=== PATIENT | male | born 1995 | race African-American/Black ===

== ENCOUNTER 2017-01-10 20:36 | Emergency (ER) | payer SELFPAY ==
[~2017-01-10] VITALS: Ht 182.9 cm; Wt 74.8 kg
[2017-01-10 20:44] VITALS: BP 147/75
--- NOTE | 2017-01-10 21:01 | PHYS DOC ---
Past Medical History Past Medical History: No Pertinent History Past Surgical History: No Surgical History Alcohol Use: None Drug Use: None Adult General Chief Complaint Chief Complaint: HAND PROBLEM HPI HPI Patient is a 21 year old male who presents with pain on the right hand that began today after he fell. Patient denies any loss of consciousness when he fell. Review of Systems Review of Systems Constitutional: Denies fever or chills [] Musculoskeletal: Right hand pain Integument: Denies rash or skin lesions [] Neurologic: Denies headache, focal weakness or sensory changes [] All other systems were reviewed and found to be within normal limits, except as documented in this note. Current Medications Current Medications Current Medications Medications (Trade) Dose Ordered Sig/Sylvie Start Time Stop Time Status Last Admin Dose Admin Acetaminophen/ Hydrocodone Bitart (Lortab 5/325) 2 tab 1X ONCE 01/10/17 21:30 01/10/17 21:31 Allergies Allergies Allergies Coded Allergies Type Severity Reaction Last Updated Verified No Known Drug Allergies 12/22/14 No Physical Exam Physical Exam Constitutional: Well developed, well nourished, no acute distress, non-toxic appearance. [] Skin: Warm, dry, no erythema, no rash. [] Back: No tenderness, no CVA tenderness. [] Extremities: Right hand with obvious deformity on the proximal ring finger metacarpal. Swelling noted on the proximal right ring finger metacarpal. Limited range of motion to the right ring finger and pinky finger due to pain. + 2 right radial pulse. Adequate radial medial and ulnar sensation to the right hand. Neurologic: Alert and oriented X 3, normal motor function, normal sensory function, no focal deficits noted. [] Psychologic: Affect normal, judgement normal, mood normal. [] Current Patient Data Vital Signs Vital Signs Date Time Temp Pulse Resp B/P (MAP) Pulse Ox O2 Delivery O2 Flow Rate FiO2 01/10/17 20:44 97.8 96 18 147/75 (99) 99 Room Air 97.8 EKG EKG [] Radiology/Procedures Radiology/Procedures [] Course & Med Decision Making Course & Med Decision Making Pertinent Labs and Imaging studies reviewed. (See chart for details) Patient is in the ED with right hand pain after falling. Right hand x-rays interpreted by Dr. Nolan were noted for right fourth proximal metacarpal fracture. Patient was placed in ulnar gutter splint by the technical data analyst, neurovascular exam done by me is normal, cap refill less than 2 seconds. Ice elevation encouraged. Braided orthopedic doctor instructed to call the office tomorrow and set up a follow-up appointment. Toni Disclaimer Dragon Disclaimer This electronic medical record was generated, in whole or in part, using a voice recognition dictation system. Departure Departure Impression: Primary Impression: Fracture, metacarpal Additional Impression: Fall Disposition: HOME, SELF-CARE Condition: STABLE Referrals: NO PCP (PCP) ESEQUIEL MOSER MD call his office tomorrow and set up a follow up appointment Patient Instructions: Metacarpal Fracture-SportsMed Additional Instructions: You were seen with right hand fracture. We provided you an orthopedic doctor. Contact his office tomorrow and set up a follow-up appointment. Ice and elevate the affected extremities. Do not drive or operate machinery on the pain medications. Scripts Hydrocodone/Apap 5-325 (NORCO 5-325 TABLET) 1 Each Tablet 1-2 TAB PO Q4-6HRS Y for PAIN, #20 TAB Prov: PRANAY PATRICK APRN 01/10/17 Problem Qualifiers Primary Impression: Fracture, metacarpal Encounter type: initial encounter Metacarpal bone: fourth Fracture type: closed Metacarpal location: base Fracture alignment: displaced Laterality: right Qualified Codes: S62.314A - Displaced fracture of base of fourth metacarpal bone, right hand, initial encounter for closed fracture Additional Impression: Fall Encounter type: initial encounter Qualified Codes: W19.XXXA - Unspecified fall, initial encounter PRANAY PATRICK APRN Jan 10, 2017 21:01
[2017-01-10] MEDS ORDERED: HYDR-971 PO (21:12)
[2017-01-10] MEDS ORDERED: HYDROcodone/APAP 5/325MG 1 TAB TABLET PO ONE (21:30)
--- NOTE | 2017-01-11 08:17 | RAD ---
Right hand, 3 views, 01/10/2017: History: Injury There is a fracture of the proximal shaft of the fourth metacarpal with mild dorsal displacement of the proximal end of the distal fragment. The fifth CMC joint is somewhat poorly defined, however, there is a suggestion of slight subluxation and bony fragmentation at that level. There is moderate overlying soft tissue swelling. IMPRESSION: 1. Mildly displaced fracture of the proximal fourth metacarpal. 2. Probable fracture/subluxation at the fifth CMC joint.
== END 2017-01-10 21:24 | disposition home or self-care (01) ==
LOC: ER 20:36
DX: S62.614A Displaced fracture of proximal phalanx of right ring finger, initial encounter for closed fracture (principal); W19.XXXA Unspecified fall, initial encounter; Y93.89 Activity, other specified; Y99.8 Other external cause status; Y92.89 Other specified places as the place of occurrence of the external cause
CPT/HCPCS: 29125; 73130; 99284-25

== ENCOUNTER 2017-04-07 09:28 | Emergency (ER) | payer SELFPAY ==
[2017-04-07] MEDS: HYDROcodone/APAP 5/325MG 1 TAB TABLET PO (10:27)
== END 2017-04-07 10:29 | disposition home or self-care (01) ==
LOC: ER 09:28
DX: K02.9 Dental caries, unspecified (principal)
CPT/HCPCS: 99283

== ENCOUNTER 2017-05-30 16:11 | Emergency (ER) | payer SELFPAY | END 2017-05-30 16:47 | disposition home or self-care (01) | LOC: ER 16:11 | DX: K04.7 Periapical abscess without sinus (principal) | CPT/HCPCS: 99283 ==

== ENCOUNTER 2017-07-11 22:31 | Emergency (ER) | payer SELFPAY ==
[2017-07-11] MEDS: CLINDAMYCIN HCL 150 MG CAPSULE. PO (23:20)
[2017-07-11] MEDS: HYDROcodone/APAP 5/325MG 1 TAB TABLET PO (23:21)
== END 2017-07-11 23:23 | disposition home or self-care (01) ==
LOC: ER 22:31
DX: K08.89 Other specified disorders of teeth and supporting structures (principal); K02.9 Dental caries, unspecified
CPT/HCPCS: 99283